=== PATIENT | male | born 1970 | race Caucasian/White ===

== ENCOUNTER 2016-03-27 01:57 | Emergency (ER) | payer BC ==
[2016-03-27 04:03] LABS: BASO % 0.6 % (0.0-1.0); EOS # 0.3 K/mm3 (0.0-0.50); EOS % 3.9 % (0.0-3.0); LARGE UNSTAINED CELL # 0.2 K/mm3 (0.0-0.4); LARGE UNSTAINED CELL % 3.1 % (0.0-4.0); LYMPH # 2.8 K/mm3 (1.5-4.5); LYMPH % 37.2 % (24.0-44.0); MEAN CORPUSCULAR HEMOGLOBIN 29.2 pg (27.0-33.0); MEAN CORPUSCULAR HGB CONC 33.5 g/dl (32.0-36.5); MEAN CORPUSCULAR VOLUME 87.1 fl (80.0-96.0); MONO # 0.5 K/mm3 (0.0-0.8); MONO % 6.8 % (0.0-5.0); NEUTROPHILS # 3.6 K/mm3 (1.8-7.7); NEUTROPHILS % 48.4 % (36.0-66.0); PLATELET COUNT, AUTOMATED 216 k/mm3 (150-450); RED CELL DISTRIBUTION WIDTH 13.2 % (11.5-14.5); WHITE BLOOD COUNT 7.5 K/mm3 (4.0-10.0)
[2016-03-27 04:15] LABS: ANION GAP 8 MEQ/L (8-16); BLOOD UREA NITROGEN 12 MG/DL (7-18); CALCIUM LEVEL 8.5 MG/DL (8.5-10.1); CARBON DIOXIDE LEVEL 30 MEQ/L (21-32); CHLORIDE LEVEL 106 MEQ/L (98-107); GLOMERULAR FILTRATION RATE > 60.0 (>60); GLUCOSE, FASTING 98 MG/DL (70-105); POTASSIUM SERUM 3.4 MEQ/L (3.5-5.1); SODIUM LEVEL 144 MEQ/L (136-145)
--- NOTE | 2016-03-27 05:59 | EDDOCDS ---
Physician Documentation [facility] Name: Dontrell Hidalgo Age: 45 yrs Sex: Male : 1970 Arrival Date: 03/27/2016 Time: 01:57 Bed 1 Private MD: Disposition: 03/27/16 05:51 Discharged to Home/Self Care. Impression: Other anxiety disorders. - Condition is Stable. - Medication Reconciliation, Local Pharmacy Hours form. - [facility]: [facility]; When: Call to arrange an appointment; Reason: To establish care. - Problem is an ongoing problem. - Symptoms have improved. Historical: - Allergies: No known drug Allergies; - Home Meds: 1. aspirin 81 mg Oral tab 1 tab once daily - PMHx: Hypercholesterolemia; - PSHx: none; - Social history: Smoking status: Patient states was never smoker of tobacco. No barriers to communication noted, The patient speaks fluent Austrian, Speaks appropriately for age. - : The pt / caregiver states he / she is not on anticoagulants. Home medication list is obtained from the patient, [email or web address] import data. - Exposure Risk Screening:: None identified. - Family history: Pertinent for CVA or TIA, heart disease, Mother has/had CABG. Father has/had angioplasty. Brother has/had cerebrovascular accident, [place], age 64. Vital Signs: 03/27 02:11 BP 143 / 82; Pulse 83; Resp 18; Temp 98.2(O); Pulse Ox 96% on R/A; Weight 124.74 kg / js15 275 lbs; Height 5 ft. 7 in. (170.18 cm); Pain 2/10; 02:15 BP 139 / 69 (auto/); mv5 02:16 Pulse 80 MON; Pulse Ox 94% ; mv5 02:30 BP 125 / 70 (auto/); mv5 02:30 Pulse 76 MON; Pulse Ox 93% ; mv5 02:45 BP 119 / 62 (auto/); mv5 02:46 Pulse 74 MON; Pulse Ox 93% ; mv5 03:00 BP 121 / 62 (auto/); mv5 03:01 Pulse 74 MON; Pulse Ox 93% ; mv5 03:30 BP 112 / 69 (auto/); mv5 03:31 Pulse 70 MON; Pulse Ox 94% ; mv5 02:11 Body Mass Index 43.07 (124.74 kg, 170.18 cm) js15 MDM: 02:03 ECG WITH READING ER PHYS+CARDIAG ordered. EDMS 03:01 Sales Representative Consultant/Pulse Ox/q 30 min VS ordered. feb 03:01 IV Saline Lock ordered. feb 03:01 Rhythm Strip to chart ordered. feb 03:01 Undress patient appropriately for examination ordered. feb 03:02 Basic Metabolic Profile Ordered. EDMS 03:02 CBC with Diff Ordered. EDMS 03:02 Cardiac Injury Profile Ordered. EDMS 03:02 Troponin Ordered. EDMS 03:15 Aspirin 324 mg PO once ordered. cs11 03:15 Chest, 1 View Ordered. EDMS 03:21 Financial registration complete. pm4 03:30 [facility] Payment Agreement was scanned into [employer] and attached to record. pm4 05:48 Basic Metabolic Profile Reviewed. cs11 05:48 CBC with Diff Reviewed. cs11 05:48 Cardiac Injury Profile Reviewed. cs11 05:48 Troponin Reviewed. cs11 Administered Medications: 03:20 Not Given (Pt had ASA 243mg captain's assistant, MD aware. Advised to hold ordered dose. ): Aspirin 324 mv5 mg PO once Signatures: Dispatcher [employer] EDMS Nelida Ritchie, RN RN Osbaldo Ryder, DO cs11 Mary Obrien,RN RN js15 Ananth Workman, Reg Reg pm4 Elisabeth Begum,RN RN mv5 The chart was reviewed and I authenticate all verbal orders and agree with the evaluation and treatment provided.Attachments: 03:30 [facility] Payment Agreement pm4 MTDD
--- NOTE | 2016-03-27 05:59 | EDDOCDS ---
Nurse's Notes [facility] Name: Dontrell Hidalgo Age: 45 yrs Sex: Male : 1970 Arrival Date: 03/27/2016 Time: 01:57 Bed 1 Private MD: Diagnosis: Other anxiety disorders Presentation: 03/27 02:07 Presenting complaint: Patient states: "Monday at 2 in the morning I started having js15 this fluttery feeling and didn't feel right for about three hours but it went away. Then it started up again around 330 pm yesterday and I have some chest tightness in the center of my chest". Aspirin was taken PEOPLESOFT HR DEVELOPER. (3) 81 mg tabs. Adult Sepsis Screening: The patient does not have new or worsening altered mentation. Patient's respiratory rate is less than 22. Systolic blood pressure is greater than 100. Patient has a qSOFA score of 0- Negative Sepsis Screen. Suicide/Homicide risk assessment- the patient denies having any suicidal and/or homicidal ideations and does not present with any other emotional, behavioral or mental health complaints. Status: Patient is not a student services advisor or dependent. Transition of care: patient was not received from another setting of care. 02:07 Acuity: MARLON Level 3 js15 02:07 Method Of Arrival: Walkin/Carried/Asstd js15 Triage Assessment: 02:11 General: Appears in no apparent distress, Behavior is appropriate for age, cooperative. js15 Pain: Location: xyphoid area and mid-sternal area Pain currently is 2 out of 10 on a pain scale. HIV screening NA for this visit Offered previously. The patient is triaged at the bedside. See Assessment in Nurses Notes section of ED record. Neurological: Level of Consciousness is awake, alert, obeys commands, Oriented to person, place, time. Cardiovascular: Rhythm is sinus rhythm Chest pain is described as mild, radiates Does not radiate. episodes are continuous began 1530 on 03/26/16. Respiratory: Airway is patent Respiratory effort is even, unlabored, Respiratory pattern is regular, symmetrical. Derm: Skin is pink, warm & dry. Historical: - Allergies: No known drug Allergies; - Home Meds: 1. aspirin 81 mg Oral tab 1 tab once daily - PMHx: Hypercholesterolemia; - PSHx: none; - Social history: Smoking status: Patient states was never smoker of tobacco. No barriers to communication noted, The patient speaks fluent Azeri, Speaks appropriately for age. - : The pt / caregiver states he / she is not on anticoagulants. Home medication list is obtained from the patient, [employer] import data. - Exposure Risk Screening:: None identified. - Family history: Pertinent for CVA or TIA, heart disease, Mother has/had CABG. Father has/had angioplasty. Brother has/had cerebrovascular accident, [place], age 64. Screenin:18 Screening information is obtained from the patient. Fall risk: No risks identified. mv5 Assistance ADL's: requires no assistance with activities of daily living. Abuse/DV Screen: The patient / caregiver reports he/she is: not in a situation that causes fear, pain or injury. Nutritional screening: No deficits noted. Advance Directives: There is no active DNR order. home support is adequate. Assessment: 02:18 General: Appears in no apparent distress, well nourished, well groomed, Behavior is mv5 cooperative, pleasant. Pain: Location: anterior aspect of right upper chest, anterior aspect of left upper chest, xyphoid area, mid-sternal area, left nipple, right breast and left breast Pain currently is 2 out of 10 on a pain scale. Quality of pain is described as squeezing, Pain began 2/ \\T\\ 1530, previously on 03/25. Aggravated by Worse in evening or when lying down to rest. Neurological: Level of Consciousness is awake, alert, obeys commands, Oriented to person, place, time. EENT: No deficits noted. Cardiovascular: Capillary refill < 3 seconds Heart tones S1 S2 Pulses are all present. Rhythm is sinus rhythm No ectopy. Chest pain is described as mild, quality is squeezing. Respiratory: Airway is patent Respiratory effort is even, unlabored, Respiratory pattern is regular, symmetrical, Breath sounds are clear bilaterally. GI: No deficits noted. : No deficits noted. Derm: Skin is pink, warm & dry. 02:54 General: Appears in no apparent distress, Pt awaiting ERP eval.. mv5 04:38 General: Appears in no apparent distress. General: Awaiting disposition.. Neurological: mv5 Level of Consciousness is awake, alert, Oriented to person, place, time. Cardiovascular: Capillary refill < 3 seconds Chest pain is denied. Respiratory: Airway is patent Respiratory effort is even, unlabored, Respiratory pattern is regular, symmetrical. Derm: Skin is pink, warm & dry. Vital Signs: 02:11 BP 143 / 82; Pulse 83; Resp 18; Temp 98.2(O); Pulse Ox 96% on R/A; Weight 124.74 kg; js15 Height 5 ft. 7 in. (170.18 cm); Pain 2/10; 02:15 BP 139 / 69 (auto/); mv5 02:16 Pulse 80 MON; Pulse Ox 94% ; mv5 02:30 BP 125 / 70 (auto/); mv5 02:30 Pulse 76 MON; Pulse Ox 93% ; mv5 02:45 BP 119 / 62 (auto/); mv5 02:46 Pulse 74 MON; Pulse Ox 93% ; mv5 03:00 BP 121 / 62 (auto/); mv5 03:01 Pulse 74 MON; Pulse Ox 93% ; mv5 03:30 BP 112 / 69 (auto/); mv5 03:31 Pulse 70 MON; Pulse Ox 94% ; mv5 02:11 Body Mass Index 43.07 (124.74 kg, 170.18 cm) js15 Vitals: 05:58 Log In Time: March 27, 2016 at 02:05. 5 ED Course: 01:58 Patient visited by Danielle Lyons. gjb 01:58 Patient moved to Waiting gjb 02:01 Criss Locke, RN is Primary Nurse. cz 02:01 Patient moved to 1 cz 02:09 Triage Initiated js15 02:12 Patient visited by Jumana Velasco PCA. wade 02:12 Pt greeted and oriented to ED. Patient advised of names of staff involved in care, wade location of call [place], wait times and NPO status. Patient has correct armband on for positive identification. Placed in gown. Bed in low position. Call light in reach. Side rails up X2. senior research consultant on. Pulse ox on. NIBP on. 02:12 EKG done. (by ED staff). Reviewed by Osbaldo Espinoza DO. wade 02:18 Primary Nurse role handed off by Criss Locke, RN mv5 02:18 Elisabeth Begum,RN is Primary Nurse. mv5 02:18 The patient / caregiver is instructed regarding the plan of care and ED course. mv5 02:18 Inserted saline lock: 20 gauge in right antecubital area and blood collected. The mv5 patient tolerated the procedure well. 02:54 Patient visited by Elisabeth Begum RN. mv5 03:07 Osbaldo Espinoza DO is Attending Physician. cs11 03:07 Patient visited by Osbaldo Espinoza DO. cs11 03:07 Basic Metabolic Profile Sent. mv5 03:07 CBC with Diff Sent. mv5 03:07 Cardiac Injury Profile Sent. mv5 03:07 Troponin Sent. mv5 03:30 [facility] Payment Agreement was scanned into [employer] and attached to record. pm4 03:40 Patient visited by Elisabeth Begum RN. mv5 04:37 Patient visited by Elisabeth Begum RN. mv5 05:38 Patient visited by Elisabeth Begum RN. mv5 05:50 [facility] is Referral Physician. cs11 05:56 Discontinued intact, bleeding controlled, pressure dressing applied, No mv5 redness/swelling at site. No procedures done that require assistance. Administered Medications: 03:20 Not Given (Pt had ASA 243mg MD frances aware. Advised to hold ordered dose. ): Aspirin 324 mv5 mg PO once Order Results: Lab Order: Basic Metabolic Profile; SPEC'M 03/27/16 02:11 Test: GLUCOSE, FASTING; Value: 98; Range: 70-105; Units: MG/DL; Status: F Test: BLOOD UREA NITROGEN; Value: 12; Range: 7-18; Units: MG/DL; Status: F Test: CREATININE FOR GFR; Value: 1.00; Range: 0.70-1.30; Units: MG/DL; Status: F Test: GLOMERULAR FILTRATION RATE; Value: > 60.0; Range: >60; Status: F Test: SODIUM LEVEL; Value: 144; Range: 136-145; Units: MEQ/L; Status: F Test: POTASSIUM SERUM; Value: 3.4; Range: 3.5-5.1; Abnormal: Below low normal; Units: MEQ/L; Status: F Test: CHLORIDE LEVEL; Value: 106; Range: 98-107; Units: MEQ/L; Status: F Test: CARBON DIOXIDE LEVEL; Value: 30; Range: 21-32; Units: MEQ/L; Status: F Test: ANION GAP; Value: 8; Range: 8-16; Units: MEQ/L; Status: F Test: CALCIUM LEVEL; Value: 8.5; Range: 8.5-10.1; Units: MG/DL; Status: F Test Note: ; Units are mL/min/1.73 m2 Chronic Kidney Disease Staging per NKF: Stage I & II GFR >=60 Normal to Mildly Decreased Stage III GFR 30-59 Moderately Decreased Stage IV GFR 15-29 Severely Decreased Stage V GFR <15 Very Little GFR Left ESRD GFR <15 on BUCKLE ASSEMBLER Lab Order: CBC with Diff; SPEC'M 03/27/16 02:11 Test: WHITE BLOOD COUNT; Value: 7.5; Range: 4.0-10.0; Units: K/mm3; Status: F Test: RED BLOOD COUNT; Value: 4.91; Range: 4.30-6.10; Units: M/mm3; Status: F Test: HEMOGLOBIN; Value: 14.3; Range: 14.0-18.0; Units: g/dl; Status: F Test: HEMATOCRIT; Value: 42.8; Range: 42.0-52.0; Units: %; Status: F Test: MEAN CORPUSCULAR VOLUME; Value: 87.1; Range: 80.0-96.0; Units: fl; Status: F Test: MEAN CORPUSCULAR HEMOGLOBIN; Value: 29.2; Range: 27.0-33.0; Units: pg; Status: F Test: MEAN CORPUSCULAR HGB CONC; Value: 33.5; Range: 32.0-36.5; Units: g/dl; Status: F Test: RED CELL DISTRIBUTION WIDTH; Value: 13.2; Range: 11.5-14.5; Units: %; Status: F Test: PLATELET COUNT, AUTOMATED; Value: 216; Range: 150-450; Units: k/mm3; Status: F Test: NEUTROPHILS %; Value: 48.4; Range: 36.0-66.0; Units: %; Status: F Test: LYMPH %; Value: 37.2; Range: 24.0-44.0; Units: %; Status: F Test: MONO %; Value: 6.8; Range: 0.0-5.0; Abnormal: Above high normal; Units: %; Status: F Test: EOS %; Value: 3.9; Range: 0.0-3.0; Abnormal: Above high normal; Units: %; Status: F Test: BASO %; Value: 0.6; Range: 0.0-1.0; Units: %; Status: F Test: LARGE UNSTAINED CELL %; Value: 3.1; Range: 0.0-4.0; Units: %; Status: F Test: NEUTROPHILS #; Value: 3.6; Range: 1.8-7.7; Units: K/mm3; Status: F Test: LYMPH #; Value: 2.8; Range: 1.5-4.5; Units: K/mm3; Status: F Test: MONO #; Value: 0.5; Range: 0.0-0.8; Units: K/mm3; Status: F Test: EOS #; Value: 0.3; Range: 0.0-0.50; Units: K/mm3; Status: F Test: BASO #; Value: 0.0; Range: 0.0-0.2; Units: K/mm3; Status: F Test: LARGE UNSTAINED CELL #; Value: 0.2; Range: 0.0-0.4; Units: K/mm3; Status: F Lab Order: Cardiac Injury Profile; SPEC'M 03/27/16 02:11 Test: CPK CREATINE PHOSPHOKINASE; Value: 168; Range: 39-308; Units: U/L; Status: F Test: CK-MB VALUE MASS; Value: 1.3; Range: 0.0-3.6; Units: NG/ML; Status: F Test: MB/CK RELATIVE INDEX; Value: 0.77; Range: < OR =4; Status: F Test Note: ; DIAGNOSIS CRITERIA MMB ng/ml Relative Index (RI) NON-AMI < or = 5 N/A DAVISON ZONE > 5 < or = 4 AMI > 5 > 4 Lab Order: Troponin; SPEC'M 03/27/16 02:11 Test: TROPONIN I; Value: < 0.02; Range: < 0.10; Units: NG/ML; Status: F Test Note: ; Troponin I Reference Interval for [employer] LOCI: 99th Percentile= 0.00-0.045 ng/ml Risk Stratification: <= 0.10 ng/ml Decreased Risk for Adverse Clinical Events. 0.10-1.50 ng/ml Increased Risk for Adverse Clinical Events. Evaluation of additional criterion and/or repeat testing in 2-6 hours is suggested to rule out myocardial damage. >= 1.50 ng/ml Indicative of Myocardial Injury. Outcome: 05:51 Discharge ordered by Provider. cs11 05:56 Discharge Assessment: Patient awake, alert and oriented x 3. No cognitive and/or mv5 functional deficits noted. Patient verbalized understanding of disposition instructions. patient administered narcotics - no. The following High Risk Discharge criteria are identified: None. Discharged to home ambulatory. Condition: stable. Discharge instructions given to patient, Demonstrated understanding of Pt was receptive of discharge instructions/ teaching. No special radiology studies were completed. Property sent home with patient. 05:58 Patient left the ED. mv5 Signatures: Tiburcio Britton, RN RN cz Jumana Velasco, CURRICULUM DEVELOPMENT MANAGER CURRICULUM DEVELOPMENT MANAGER Osbaldo Rosas, DO cs11 Mary Obrien,RN RN js15 Danielle Lyons Paul, Reg Reg pm4 Elisabeth Begum,RN RN mv5 KENDRICKD
--- NOTE | 2016-03-27 06:44 | ECGEPIP ---
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 RBBB NSTTW ABNORMALITY SIMILAR TO 03/09/15 Electronically Signed On 03-27-2016 6:44:32 EST by Jayme Valdivia
--- NOTE | 2016-03-27 08:15 | REP ---
PORTABLE CHEST X-RAY: Sitting AP view. HISTORY: Chest pain. Comparison study March 09, 2015. FINDINGS: EKG monitoring electrodes overlie the chest. The lungs are symmetrically aerated and free of infiltrate. Pleural angles are sharp. Pulmonary vasculature is not increased. Heart size is normal. IMPRESSION: No acute disease. Signed by Cortes Galloway MD 03/27/2016 08:24 A
--- NOTE | 2016-03-29 06:59 | EDDOCDS ---
Physician Documentation [facility] Name: Dontrell Hidalgo Age: 45 yrs Sex: Male : 1970 Arrival Date: 03/27/2016 Time: 01:57 Bed 1 Private MD: Disposition: 03/27/16 05:51 Discharged to Home/Self Care. Impression: Other anxiety disorders. - Condition is Stable. - Medication Reconciliation, Local Pharmacy Hours form. - Follow up: [facility]; When: Call to arrange an appointment; Reason: To establish care. - Problem is an ongoing problem. - Symptoms have improved. Historical: - Allergies: No known drug Allergies; - Home Meds: 1. aspirin 81 mg Oral tab 1 tab once daily - PMHx: Hypercholesterolemia; - PSHx: none; - Social history: Smoking status: Patient states was never smoker of tobacco. No barriers to communication noted, The patient speaks fluent Nepalese, Speaks appropriately for age. - : The pt / caregiver states he / she is not on anticoagulants. Home medication list is obtained from the patient, [employer] import data. - Exposure Risk Screening:: None identified. - Family history: Pertinent for CVA or TIA, heart disease, Mother has/had CABG. Father has/had angioplasty. Brother has/had cerebrovascular accident, [place], age 64. Vital Signs: 03/27 02:11 BP 143 / 82; Pulse 83; Resp 18; Temp 98.2(O); Pulse Ox 96% on R/A; Weight 124.74 kg / js15 275 lbs; Height 5 ft. 7 in. (170.18 cm); Pain 2/10; 02:15 BP 139 / 69 (auto/); mv5 02:16 Pulse 80 MON; Pulse Ox 94% ; mv5 02:30 BP 125 / 70 (auto/); mv5 02:30 Pulse 76 MON; Pulse Ox 93% ; mv5 02:45 BP 119 / 62 (auto/); mv5 02:46 Pulse 74 MON; Pulse Ox 93% ; mv5 03:00 BP 121 / 62 (auto/); mv5 03:01 Pulse 74 MON; Pulse Ox 93% ; mv5 03:30 BP 112 / 69 (auto/); mv5 03:31 Pulse 70 MON; Pulse Ox 94% ; mv5 02:11 Body Mass Index 43.07 (124.74 kg, 170.18 cm) js15 MDM: 02:03 ECG WITH READING ER PHYS+CARDIAG ordered. EDMS 03:01 Buffing Turner And Counter/Pulse Ox/q 30 min VS ordered. feb 03:01 IV Saline Lock ordered. feb 03:01 Rhythm Strip to chart ordered. feb 03:01 Undress patient appropriately for examination ordered. sabina 03:02 Basic Metabolic Profile Ordered. EDMS 03:02 CBC with Diff Ordered. EDMS 03:02 Cardiac Injury Profile Ordered. EDMS 03:02 Troponin Ordered. EDMS 03:15 Aspirin 324 mg PO once ordered. cs11 03:15 Chest, 1 View Ordered. EDMS 03:21 Financial registration complete. pm4 03:30 [facility] Payment Agreement was scanned into [employer] and attached to record. pm4 05:48 Basic Metabolic Profile Reviewed. cs11 05:48 CBC with Diff Reviewed. cs11 05:48 Cardiac Injury Profile Reviewed. cs11 05:48 Troponin Reviewed. cs11 14:26 T-Sheet-- Draft Copy was scanned into [employer] and attached to record. gb 14:26 ECG/EKG was scanned into [employer] and attached to record. gb Administered Medications: 03:20 Not Given (Pt had ASA 243mg banking pin adjuster, MD aware. Advised to hold ordered dose. ): Aspirin 324 mv5 mg PO once Signatures: Dispatcher [employer] Nelida Espino, RN Deana Lewis, Reg Reg gb Osbaldo Espinoza, DO DO cs11 Mary ObrienRN GIGI js15 Ananth Workman, Reg Reg pm4 Elisabeth BegumRN RN mv5 The chart was reviewed and I authenticate all verbal orders and agree with the evaluation and treatment provided.Attachments: 03:30 [facility] Payment Agreement pm4 14:26 T-Sheet-- Draft Copy gb 14:26 ECG/EKG gb Chart Complete MTDD
--- NOTE | 2016-03-29 06:59 | EDDOCDS ---
Physician Documentation [facility] Name: Dontrell Hidalgo Age: 45 yrs Sex: Male : 1970 Arrival Date: 03/27/2016 Time: 01:57 Bed 1 Private MD: Disposition: 03/27/16 05:51 Discharged to Home/Self Care. Impression: Other anxiety disorders. - Condition is Stable. - Medication Reconciliation, Local Pharmacy Hours form. - Follow up: [facility]; When: Call to arrange an appointment; Reason: To establish care. - Problem is an ongoing problem. - Symptoms have improved. Historical: - Allergies: No known drug Allergies; - Home Meds: 1. aspirin 81 mg Oral tab 1 tab once daily - PMHx: Hypercholesterolemia; - PSHx: none; - Social history: Smoking status: Patient states was never smoker of tobacco. No barriers to communication noted, The patient speaks fluent Icelandic, Speaks appropriately for age. - : The pt / caregiver states he / she is not on anticoagulants. Home medication list is obtained from the patient, [employer] import data. - Exposure Risk Screening:: None identified. - Family history: Pertinent for CVA or TIA, heart disease, Mother has/had CABG. Father has/had angioplasty. Brother has/had cerebrovascular accident, [place], age 64. Vital Signs: 03/27 02:11 BP 143 / 82; Pulse 83; Resp 18; Temp 98.2(O); Pulse Ox 96% on R/A; Weight 124.74 kg / js15 275 lbs; Height 5 ft. 7 in. (170.18 cm); Pain 2/10; 02:15 BP 139 / 69 (auto/); mv5 02:16 Pulse 80 MON; Pulse Ox 94% ; mv5 02:30 BP 125 / 70 (auto/); mv5 02:30 Pulse 76 MON; Pulse Ox 93% ; mv5 02:45 BP 119 / 62 (auto/); mv5 02:46 Pulse 74 MON; Pulse Ox 93% ; mv5 03:00 BP 121 / 62 (auto/); mv5 03:01 Pulse 74 MON; Pulse Ox 93% ; mv5 03:30 BP 112 / 69 (auto/); mv5 03:31 Pulse 70 MON; Pulse Ox 94% ; mv5 02:11 Body Mass Index 43.07 (124.74 kg, 170.18 cm) js15 MDM: 02:03 ECG WITH READING ER PHYS+CARDIAG ordered. EDMS 03:01 Spearer/Pulse Ox/q 30 min VS ordered. feb 03:01 IV Saline Lock ordered. feb 03:01 Rhythm Strip to chart ordered. feb 03:01 Undress patient appropriately for examination ordered. sabina 03:02 Basic Metabolic Profile Ordered. EDMS 03:02 CBC with Diff Ordered. EDMS 03:02 Cardiac Injury Profile Ordered. EDMS 03:02 Troponin Ordered. EDMS 03:15 Aspirin 324 mg PO once ordered. cs11 03:15 Chest, 1 View Ordered. EDMS 03:21 Financial registration complete. pm4 03:30 [facility] Payment Agreement was scanned into [employer] and attached to record. pm4 05:48 Basic Metabolic Profile Reviewed. cs11 05:48 CBC with Diff Reviewed. cs11 05:48 Cardiac Injury Profile Reviewed. cs11 05:48 Troponin Reviewed. cs11 14:26 T-Sheet-- Draft Copy was scanned into [employer] and attached to record. gb 14:26 ECG/EKG was scanned into [employer] and attached to record. gb Administered Medications: 03:20 Not Given (Pt had ASA 243mg precinct police captain, MD aware. Advised to hold ordered dose. ): Aspirin 324 mv5 mg PO once Signatures: Dispatcher [employer] Nelida Espino, RN Deana Lewis, Reg Reg gb Osbaldo Espinoza, DO DO cs11 Mary ObrienRN GIGI js15 Ananth Workman, Reg Reg pm4 Elisabeth BegumRN RN mv5 The chart was reviewed and I authenticate all verbal orders and agree with the evaluation and treatment provided.Attachments: 03:30 [facility] Payment Agreement pm4 14:26 T-Sheet-- Draft Copy gb 14:26 ECG/EKG gb Chart Complete MTDD
--- NOTE | 2016-03-29 06:59 | EDDOCDS ---
Nurse's Notes [facility] Name: Samm Hidalgo Age: 45 yrs Sex: Male : 1970 Arrival Date: 03/27/2016 Time: 01:57 Bed 1 Private MD: Diagnosis: Other anxiety disorders Presentation: 03/27 02:07 Presenting complaint: Patient states: "Monday at 2 in the morning I started having js15 this fluttery feeling and didn't feel right for about three hours but it went away. Then it started up again around 330 pm yesterday and I have some chest tightness in the center of my chest". Aspirin was taken INSTRUCTOR PHYSICAL EDUCATION. (3) 81 mg tabs. Adult Sepsis Screening: The patient does not have new or worsening altered mentation. Patient's respiratory rate is less than 22. Systolic blood pressure is greater than 100. Patient has a qSOFA score of 0- Negative Sepsis Screen. Suicide/Homicide risk assessment- the patient denies having any suicidal and/or homicidal ideations and does not present with any other emotional, behavioral or mental health complaints. 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 Transition of care: patient was not received from another setting of care. 02:07 Acuity: MARLON Level 3 js15 02:07 Method Of Arrival: Walkin/Carried/Asstd js15 Triage Assessment: 02:11 General: Appears in no apparent distress, Behavior is appropriate for age, cooperative. js15 Pain: Location: xyphoid area and mid-sternal area Pain currently is 2 out of 10 on a pain scale. HIV screening NA for this visit Offered previously. The patient is triaged at the bedside. See Assessment in Nurses Notes section of ED record. Neurological: Level of Consciousness is awake, alert, obeys commands, Oriented to person, place, time. Cardiovascular: Rhythm is sinus rhythm Chest pain is described as mild, radiates Does not radiate. episodes are continuous began 1530 on 03/26/16. Respiratory: Airway is patent Respiratory effort is even, unlabored, Respiratory pattern is regular, symmetrical. Derm: Skin is pink, warm & dry. Historical: - Allergies: No known drug Allergies; - Home Meds: 1. aspirin 81 mg Oral tab 1 tab once daily - PMHx: Hypercholesterolemia; - PSHx: none; - Social history: Smoking status: Patient states was never smoker of tobacco. No barriers to communication noted, The patient speaks fluent Amharic, Speaks appropriately for age. - : The pt / caregiver states he / she is not on anticoagulants. Home medication list is obtained from the patient, Sendio import data. - Exposure Risk Screening:: None identified. - Family history: Pertinent for CVA or TIA, heart disease, Mother has/had CABG. Father has/had angioplasty. Brother has/had cerebrovascular accident, [place], age 64. Screenin:18 Screening information is obtained from the patient. Fall risk: No risks identified. mv5 Assistance ADL's: requires no assistance with activities of daily living. Abuse/DV Screen: The patient / caregiver reports he/she is: not in a situation that causes fear, pain or injury. Nutritional screening: No deficits noted. Advance Directives: There is no active DNR order. home support is adequate. Assessment: 02:18 General: Appears in no apparent distress, well nourished, well groomed, Behavior is mv5 cooperative, pleasant. Pain: Location: anterior aspect of right upper chest, anterior aspect of left upper chest, xyphoid area, mid-sternal area, left nipple, right breast and left breast Pain currently is 2 out of 10 on a pain scale. Quality of pain is described as squeezing, Pain began 2/ \\T\\ 1530, previously on 03/25. Aggravated by Worse in evening or when lying down to rest. Neurological: Level of Consciousness is awake, alert, obeys commands, Oriented to person, place, time. EENT: No deficits noted. Cardiovascular: Capillary refill < 3 seconds Heart tones S1 S2 Pulses are all present. Rhythm is sinus rhythm No ectopy. Chest pain is described as mild, quality is squeezing. Respiratory: Airway is patent Respiratory effort is even, unlabored, Respiratory pattern is regular, symmetrical, Breath sounds are clear bilaterally. GI: No deficits noted. : No deficits noted. Derm: Skin is pink, warm & dry. 02:54 General: Appears in no apparent distress, Pt awaiting ERP eval.. mv5 04:38 General: Appears in no apparent distress. General: Awaiting disposition.. Neurological: mv5 Level of Consciousness is awake, alert, Oriented to person, place, time. Cardiovascular: Capillary refill < 3 seconds Chest pain is denied. Respiratory: Airway is patent Respiratory effort is even, unlabored, Respiratory pattern is regular, symmetrical. Derm: Skin is pink, warm & dry. Vital Signs: 02:11 BP 143 / 82; Pulse 83; Resp 18; Temp 98.2(O); Pulse Ox 96% on R/A; Weight 124.74 kg; js15 Height 5 ft. 7 in. (170.18 cm); Pain 2/10; 02:15 BP 139 / 69 (auto/); mv5 02:16 Pulse 80 MON; Pulse Ox 94% ; mv5 02:30 BP 125 / 70 (auto/); mv5 02:30 Pulse 76 MON; Pulse Ox 93% ; mv5 02:45 BP 119 / 62 (auto/); mv5 02:46 Pulse 74 MON; Pulse Ox 93% ; mv5 03:00 BP 121 / 62 (auto/); mv5 03:01 Pulse 74 MON; Pulse Ox 93% ; mv5 03:30 BP 112 / 69 (auto/); mv5 03:31 Pulse 70 MON; Pulse Ox 94% ; mv5 02:11 Body Mass Index 43.07 (124.74 kg, 170.18 cm) js15 Vitals: 05:58 Log In Time: March 27, 2016 at 02:05. 5 ED Course: 01:58 Patient visited by Danielle Lyons. gjb 01:58 Patient moved to Waiting gjb 02:01 Criss Locke, RN is Primary Nurse. cz 02:01 Patient moved to 1 cz 02:09 Triage Initiated js15 02:12 Patient visited by Jumana Velasco PCA. wade 02:12 Pt greeted and oriented to ED. Patient advised of names of staff involved in care, wade location of call [place], wait times and NPO status. Patient has correct armband on for positive identification. Placed in gown. Bed in low position. Call light in reach. Side rails up X2. manager monitoring on. Pulse ox on. NIBP on. 02:12 EKG done. (by ED staff). Reviewed by Osbaldo Gabriel DO. wade 02:18 Primary Nurse role handed off by Criss Locke, RN mv5 02:18 Elisabeth Begum,RN is Primary Nurse. mv5 02:18 The patient / caregiver is instructed regarding the plan of care and ED course. mv5 02:18 Inserted saline lock: 20 gauge in right antecubital area and blood collected. The mv5 patient tolerated the procedure well. 02:54 Patient visited by Elisabeth Begum RN. mv5 03:07 Osbaldo Gabriel DO is Attending Physician. cs11 03:07 Patient visited by Osbaldo Gabriel DO. cs11 03:07 Basic Metabolic Profile Sent. mv5 03:07 CBC with Diff Sent. mv5 03:07 Cardiac Injury Profile Sent. mv5 03:07 Troponin Sent. mv5 03:30 [facility] Payment Agreement was scanned into Portapure and attached to record. pm4 03:40 Patient visited by Elisabeth Begum RN. mv5 04:37 Patient visited by Elisabeth Begum RN. mv5 05:38 Patient visited by Elisabeth Begum RN. mv5 05:50 [facility] is Referral Physician. cs11 05:56 Discontinued intact, bleeding controlled, pressure dressing applied, No mv5 redness/swelling at site. No procedures done that require assistance. 06:54 EKG-ADULT Returned. EDMS 08:17 Chest, 1 View Returned. EDMS 14:26 T-Sheet-- Draft Copy was scanned into Portapure and attached to record. gb 14:26 ECG/EKG was scanned into Portapure and attached to record. gb Administered Medications: 03:20 Not Given (Pt had ASA 243mg MD frances aware. Advised to hold ordered dose. ): Aspirin 324 mv5 mg PO once Order Results: Lab Order: Basic Metabolic Profile; [facility]' 03/27/16 02:11 Test: GLUCOSE, FASTING; Value: 98; Range: 70-105; Units: MG/DL; Status: F Test: BLOOD UREA NITROGEN; Value: 12; Range: 7-18; Units: MG/DL; Status: F Test: CREATININE FOR GFR; Value: 1.00; Range: 0.70-1.30; Units: MG/DL; Status: F Test: GLOMERULAR FILTRATION RATE; Value: > 60.0; Range: >60; Status: F Test: SODIUM LEVEL; Value: 144; Range: 136-145; Units: MEQ/L; Status: F Test: POTASSIUM SERUM; Value: 3.4; Range: 3.5-5.1; Abnormal: Below low normal; Units: MEQ/L; Status: F Test: CHLORIDE LEVEL; Value: 106; Range: 98-107; Units: MEQ/L; Status: F Test: CARBON DIOXIDE LEVEL; Value: 30; Range: 21-32; Units: MEQ/L; Status: F Test: ANION GAP; Value: 8; Range: 8-16; Units: MEQ/L; Status: F Test: CALCIUM LEVEL; Value: 8.5; Range: 8.5-10.1; Units: MG/DL; Status: F Test Note: ; Units are mL/min/1.73 m2 Chronic Kidney Disease Staging per NKF: Stage I & II GFR >=60 Normal to Mildly Decreased Stage III GFR 30-59 Moderately Decreased Stage IV GFR 15-29 Severely Decreased Stage V GFR <15 Very Little GFR Left ESRD GFR <15 on SUBSTATION ELECTRICIAN Lab Order: CBC with Diff; SPEC'M 03/27/16 02:11 Test: WHITE BLOOD COUNT; Value: 7.5; Range: 4.0-10.0; Units: K/mm3; Status: F Test: RED BLOOD COUNT; Value: 4.91; Range: 4.30-6.10; Units: M/mm3; Status: F Test: HEMOGLOBIN; Value: 14.3; Range: 14.0-18.0; Units: g/dl; Status: F Test: HEMATOCRIT; Value: 42.8; Range: 42.0-52.0; Units: %; Status: F Test: MEAN CORPUSCULAR VOLUME; Value: 87.1; Range: 80.0-96.0; Units: fl; Status: F Test: MEAN CORPUSCULAR HEMOGLOBIN; Value: 29.2; Range: 27.0-33.0; Units: pg; Status: F Test: MEAN CORPUSCULAR HGB CONC; Value: 33.5; Range: 32.0-36.5; Units: g/dl; Status: F Test: RED CELL DISTRIBUTION WIDTH; Value: 13.2; Range: 11.5-14.5; Units: %; Status: F Test: PLATELET COUNT, AUTOMATED; Value: 216; Range: 150-450; Units: k/mm3; Status: F Test: NEUTROPHILS %; Value: 48.4; Range: 36.0-66.0; Units: %; Status: F Test: LYMPH %; Value: 37.2; Range: 24.0-44.0; Units: %; Status: F Test: MONO %; Value: 6.8; Range: 0.0-5.0; Abnormal: Above high normal; Units: %; Status: F Test: EOS %; Value: 3.9; Range: 0.0-3.0; Abnormal: Above high normal; Units: %; Status: F Test: BASO %; Value: 0.6; Range: 0.0-1.0; Units: %; Status: F Test: LARGE UNSTAINED CELL %; Value: 3.1; Range: 0.0-4.0; Units: %; Status: F Test: NEUTROPHILS #; Value: 3.6; Range: 1.8-7.7; Units: K/mm3; Status: F Test: LYMPH #; Value: 2.8; Range: 1.5-4.5; Units: K/mm3; Status: F Test: MONO #; Value: 0.5; Range: 0.0-0.8; Units: K/mm3; Status: F Test: EOS #; Value: 0.3; Range: 0.0-0.50; Units: K/mm3; Status: F Test: BASO #; Value: 0.0; Range: 0.0-0.2; Units: K/mm3; Status: F Test: LARGE UNSTAINED CELL #; Value: 0.2; Range: 0.0-0.4; Units: K/mm3; Status: F Lab Order: Cardiac Injury Profile; SPEC'M 03/27/16 02:11 Test: CPK CREATINE PHOSPHOKINASE; Value: 168; Range: 39-308; Units: U/L; Status: F Test: CK-MB VALUE MASS; Value: 1.3; Range: 0.0-3.6; Units: NG/ML; Status: F Test: MB/CK RELATIVE INDEX; Value: 0.77; Range: < OR =4; Status: F Test Note: ; DIAGNOSIS CRITERIA MMB ng/ml Relative Index (RI) NON-AMI < or = 5 N/A DAVISON ZONE > 5 < or = 4 AMI > 5 > 4 Lab Order: Troponin; SPEC'M 03/27/16 02:11 Test: TROPONIN I; Value: < 0.02; Range: < 0.10; Units: NG/ML; Status: F Test Note: ; Troponin I Reference Interval for Siemens Roann LOCI: 99th Percentile= 0.00-0.045 ng/ml Risk Stratification: <= 0.10 ng/ml Decreased Risk for Adverse Clinical Events. 0.10-1.50 ng/ml Increased Risk for Adverse Clinical Events. Evaluation of additional criterion and/or repeat testing in 2-6 hours is suggested to rule out myocardial damage. >= 1.50 ng/ml Indicative of Myocardial Injury. 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 RBBB; NSTTW ABNORMALITY; SIMILAR TO 03/09/15; ; Electronically Signed On 03-27-2016 6:44:32 EST by Jayme Valdivia; Radiology Order: Chest, 1 View Test: Chest, 1 View REASON FOR EXAMINATION: Chest Pain; PORTABLE CHEST X-RAY: Sitting AP view.; ; HISTORY: Chest pain.; ; Comparison study March 09, 2015.; ; FINDINGS: EKG monitoring electrodes overlie the chest. The lungs are; symmetrically aerated and free of infiltrate. Pleural angles are sharp.; Pulmonary vasculature is not increased. Heart size is normal.; ; IMPRESSION:; ; No acute disease.; ; ; Signed by; Cortes aGlloway MD 03/27/2016 08:24 A; Outcome: 05:51 Discharge ordered by Provider. cs11 05:56 Discharge Assessment: Patient awake, alert and oriented x 3. No cognitive and/or mv5 functional deficits noted. Patient verbalized understanding of disposition instructions. patient administered narcotics - no. The following High Risk Discharge criteria are identified: None. Discharged to home ambulatory. Condition: stable. Discharge instructions given to patient, Demonstrated understanding of Pt was receptive of discharge instructions/ teaching. No special radiology studies were completed. Property sent home with patient. 05:58 Patient left the ED. mv5 Signatures: Dispatcher [employer] EDTiburcio Gardner, RN RN cz Deana Krueger, Reg Reg gb Jumana Velasco, LABOR AND EMPLOYMENT [employer]OR [employer] EMPL[employer]MENT [employer] Osbaldo Rosas, DO DO cs11 Mary Obrien,RN RN js15 Danielle Lyons Paul, Reg Reg pm4 Elisabeth BegumRN RN mv5 Chart Complete MTDD
== END 2016-03-27 05:58 | disposition home or self-care (01) ==
LOC: M ED 01:57
DX: F41.1 Generalized anxiety disorder (principal); E78.5 Hyperlipidemia, unspecified; Z79.82 Long term (current) use of aspirin

== ENCOUNTER → 2016-08-29 | Outpatient (REF) | payer BC ==
[2016-08-29 18:04] LABS: BASO % 0.4 % (0.0-1.0); EOS # 0.2 K/mm3 (0.0-0.50); EOS % 2.9 % (0.0-3.0); LARGE UNSTAINED CELL # 0.1 K/mm3 (0.0-0.4); LARGE UNSTAINED CELL % 1.6 % (0.0-4.0); LYMPH # 1.9 K/mm3 (1.5-4.5); LYMPH % 26.7 % (24.0-44.0); MEAN CORPUSCULAR HEMOGLOBIN 30.9 pg (27.0-33.0); MEAN CORPUSCULAR HGB CONC 33.7 g/dl (32.0-36.5); MEAN CORPUSCULAR VOLUME 91.7 fl (80.0-96.0); MONO # 0.4 K/mm3 (0.0-0.8); MONO % 5.3 % (0.0-5.0); NEUTROPHILS # 4.2 K/mm3 (1.8-7.7); NEUTROPHILS % 63.1 % (36.0-66.0); PLATELET COUNT, AUTOMATED 231 k/mm3 (150-450); RED CELL DISTRIBUTION WIDTH 13.2 % (11.5-14.5); WHITE BLOOD COUNT 6.6 K/mm3 (4.0-10.0)
[2016-08-29 18:26] LABS: ALBUMIN 3.4 GM/DL (3.2-5.2); ALKALINE PHOSPHATASE 94 U/L (45-117); ALT/SGPT 28 U/L (12-78); ANION GAP 7 MEQ/L (8-16); AST/SGOT 19 U/L (15-37); BILIRUBIN,TOTAL 0.6 MG/DL (0.2-1.0); BLOOD UREA NITROGEN 19 MG/DL (7-18); CALCIUM LEVEL 8.4 MG/DL (8.5-10.1); CARBON DIOXIDE LEVEL 23 MEQ/L (21-32); CHLORIDE LEVEL 111 MEQ/L (98-107); CHOLESTEROL LEVEL 161 MG/DL (<200); CREATININE FOR GFR 0.82 MG/DL (0.70-1.30); FREE T4 0.77 NG/DL (0.76-1.46); GLOMERULAR FILTRATION RATE > 60.0 (>60); GLUCOSE, FASTING 119 MG/DL (70-105); POTASSIUM SERUM 4.2 MEQ/L (3.5-5.1); SODIUM LEVEL 141 MEQ/L (136-145); TOTAL PROTEIN 6.5 GM/DL (6.4-8.2); TRIGLYCERIDES LEVEL 199 MG/DL (<150)
== END ==
LOC: M SFHCCAPE 10:40
PROVIDERS: ATTEND Physician Assistant
DX: E78.1 Pure hyperglyceridemia (principal)

== ENCOUNTER → 2017-02-21 | Outpatient (REF) | payer BC ==
[2017-02-21 17:14] LABS: ALBUMIN 3.5 GM/DL (3.2-5.2); ALBUMIN/GLOBULIN RATIO 1.13 (1.00-1.93); ALKALINE PHOSPHATASE 85 U/L (45-117); ALT/SGPT 26 U/L (12-78); ANION GAP 8 MEQ/L (8-16); AST/SGOT 18 U/L (7-37); BILIRUBIN,TOTAL 0.5 MG/DL (0.2-1.0); BLOOD UREA NITROGEN 15 MG/DL (7-18); CALCIUM LEVEL 8.8 MG/DL (8.5-10.1); CARBON DIOXIDE LEVEL 27 MEQ/L (21-32); CHLORIDE LEVEL 109 MEQ/L (98-107); CHOLESTEROL LEVEL 155 MG/DL (<200); CHOLESTEROL RISK RATIO 3.369 (<5); CREATININE FOR GFR 0.81 MG/DL (0.70-1.30); GLOMERULAR FILTRATION RATE > 60.0 (>60); GLUCOSE, FASTING 132 MG/DL (70-105); HDL CHOLESTEROL 46 MG/DL (>40); LDL CHOLESTEROL 88.8 MG/DL (<100); NON-HDL-C 109 MG/DL; POTASSIUM SERUM 3.9 MEQ/L (3.5-5.1); SODIUM LEVEL 144 MEQ/L (136-145); TOTAL PROTEIN 6.6 GM/DL (6.4-8.2); TRIGLYCERIDES LEVEL 101 MG/DL (<150)
[2017-02-21 17:15] LABS: ESTIMATED AVERAGE GLUCOSE 123 MG/DL (60-110); HEMOGLOBIN A1c 5.9 %
== END ==
LOC: M SFHCCAPE 10:51
DX: R73.01 Impaired fasting glucose (principal)
CPT/HCPCS: 80053

== ENCOUNTER 2018-10-29 16:59 | Inpatient (IN) | payer BC, OTHER ==
[~2018-10-29] VITALS: Ht 170.2 cm; Wt 133.3 kg
[2018-10-29] MEDS ORDERED: FISH1000 PO (17:04)
[2018-10-29] MEDS ORDERED: ASPI81CH33 PO (17:04)
[2018-10-29] MEDS ORDERED: VITA500C24 PO (17:04)
--- NOTE | 2018-10-29 18:24 | REPVR ---
EXAM: US Duplex Left Lower Extremity Veins, Limited EXAM DATE/TIME: 10/29/2018 6:02 PM CLINICAL HISTORY: 47 years old, male; Pain; Leg, lower; Left; Additional info: Swelling red leg TECHNIQUE: Imaging protocol: Real-time Duplex ultrasound of the Left Lower Extremity with 2-D solo scale, color Doppler flow and spectral waveform analysis with image documentation. Limited exam focused on the left lower extremity veins. COMPARISON: No relevant prior studies available. FINDINGS: Left deep veins: Unremarkable. The common femoral, femoral, proximal profunda femoral and popliteal veins are patent without thrombus. Normal Doppler waveforms. Normal compressibility and/or augmentation response. Soft tissues: A left popliteal fossa fluid collection most likely representing a Leroy's cyst measuring 3.7 x 4.9 x 1.9 cm. IMPRESSION: 1. No evidence of deep venous thrombus in the left lower extremity. 2. Left popliteal fossa Leroy's cyst measures up to 4.9 cm. Electronically signed by: Jody Mandujano On 10/29/2018 18:23:48 PM
[2018-10-29] MEDS ORDERED: ceFAZolin SOD 1 GM in D5W MINI-BAG PLUS 50 ML IV ONE (19:45)
[2018-10-29 20:43] LABS: BASO % 0.4 % (0.0-1.0); EOS # 0.1 10^3/uL (0.0-0.5); EOS % 0.9 % (0.0-3.0); HEMATOCRIT 42.9 % (42.0-52.0); LYMPH # 1.7 10^3/uL (1.5-5.0); LYMPH % 22.1 % (24.0-44.0); MEAN CORPUSCULAR HEMOGLOBIN 30.4 pg (27.0-33.0); MEAN CORPUSCULAR HGB CONC 32.6 g/dl (32.0-36.5); MEAN CORPUSCULAR VOLUME 93.1 fl (80.0-96.0); MONO % 12.3 % (0.0-5.0); NEUTROPHILS # 4.9 10^3/uL (1.5-8.5); NEUTROPHILS % 62.5 % (36.0-66.0); PLATELET COUNT, AUTOMATED 212 10^3/uL (150-450); RED BLOOD COUNT 4.61 10^6/uL (4.30-6.10); WHITE BLOOD COUNT 7.9 10^3/uL (4.0-10.0)
[2018-10-29 21:01] LABS: BLOOD UREA NITROGEN 17 MG/DL (7-18); CALCIUM LEVEL 8.7 MG/DL (8.5-10.1); CARBON DIOXIDE LEVEL 19 MEQ/L (21-32); CHLORIDE LEVEL 107 MEQ/L (98-107); CREATININE FOR GFR 0.96 MG/DL (0.70-1.30); GLOMERULAR FILTRATION RATE > 60.0 (>60); GLUCOSE, FASTING 84 MG/DL (70-100); POTASSIUM SERUM 4.1 MEQ/L (3.5-5.1); SODIUM LEVEL 134 MEQ/L (136-145)
[2018-10-29] MEDS ORDERED: VENTAER INH (23:20)
[2018-10-29] MEDS ORDERED: ASPI-161 PO (23:20)
[2018-10-29] MEDS ORDERED: C 50TAB PO (23:20)
[2018-10-29] MEDS ORDERED: TUMS500C PO (23:20)
[2018-10-29] MEDS ORDERED: IBUP-1730 PO (23:20)
[2018-10-29] MEDS ORDERED: OMEGCAP4 PO (23:20)
[2018-10-29] MEDS ORDERED: PEPT262S PO (23:20)
--- NOTE | 2018-10-29 23:27 | HPEPDOC ---
[facility] Medical History & Physical Date of Admission Oct 30, 2018 Date of Service: Oct 30, 2018 Primary Care Physician: FARIHA ARMENDARIZ PA-C Attending Physician: ISAK DUNN MD History and Physical TIME OF SERVICE: 12:05 AM CHIEF COMPLAINT: Left lower extremity swelling HISTORY OF PRESENT ILLNESS: This is a 47-year-old male who presents with complaints of left lower extremity swelling. He reports being stung by a bee on the anterior aspect of the left lower extremity on . He was wearing shorts and didn't clean the area. He continued to golf and didn't shower until several hours after being stung. Just after midnight on Monday morning he developed chills and vomited for about 12 hours. On Monday he noticed he developed left upper leg redness . Today he decided to come to also because over the last few days he developed worsening left lower extremity redness, swelling and burning sensation. . He is able to walk. Associated symptoms include subjective fevers and chills. REVIEW OF SYSTEMS: 12 point review of systems negative except as listed in HPI PAST MEDICAL/ SURGICAL HISTORY: Hyperglycemia. Seasonal allergies His pectus sleep apnea did not follow through sleep study Morbid obesity SOCIAL HISTORY: Nonsmoker. FAMILY HISTORY: Diabetes Hypertension CVA. / Carotid endarterectomy. tonic CAD/Triple bypass ALLERGIES: Please see below. HOME MEDICATIONS: Please see below. PHYSICAL EXAMINATION: VITAL SIGNS: Please see below. GENERAL APPEARANCE: well-nourished, well-developed, not in apparent distress, not diaphoretic HEENT: normocephalic, atraumatic, Mucous members moist and pink CARDIOVASCULAR: , regular rate and rhythm. No murmurs, rubs or gallops LUNGS: clear to auscultation bilaterally on room air MUSCULOSKELETAL: range of motion is intact in all 4 extremities INTEGUMENT: The entire left lower leg is red and swollen. This extends up along the lines of lymphatic distribution to the left upper leg. The patient denies tenderness on palpation of the leg PSYCHIATRIC: alert and oriented person, place and time, able to understand and follow commands LABORATORY DATA: See below. IMAGING: Ultrasound of the left lower extremity is negative for DVT but shows a left popliteal fossa because his this 4.9 cm in size MICROBIOLOGY: Please see below. ASSESSMENT: Mr. Hidalgo is a 47-year-old male with a past history of dyslipidemia, who will be admitted for management of left lower extremity cellulitis PLAN: 1. LLE Cellulitis likely 2/2 infected bee sting Risk factors include obesity -WBC # is within normal limits -Duplex for DVT Plan: admit to med-surg / fall precautions / elevate leg /continue with IV cefazolin / Tylenol and ibuprofen for pain 2.Leroy's cyst affecting the left knee. 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 Plan: Pain meds for DJD / the daytime team can decide if arthrosis centesis of the knee and intra-articular corticosteroid injections are warranted 3. Dyslipidemia Plan: Continue home meds 4. Morbid Obesity BMI 46.3 Since his BMI is above 40 he is a candidate for bariatric surgery Plan: high fiber diet/can f/u w PCP for manager medical consult & referral for Bariatric surgery / recommend cardiovascular exercise for 40 min 4-5 days a week DVT prophylaxis with Lovenox. Disposition pending clinical course Vital Signs Vital Signs Date Time Temp Pulse Resp B/P (MAP) Pulse Ox O2 Delivery O2 Flow Rate FiO2 10/29/18 21:40 98.9 85 18 160/75 (103) 96 Room Air Laboratory Data Labs 24H Laboratory Tests 2 10/29/18 20:25: Anion Gap 8, Glomerular Filtration Rate > 60.0, Blood Urea Nitrogen 17, Creatinine 0.96, Sodium Level 134L, Potassium Level 4.1, Chloride Level 107, Carbon Dioxide Level 19L, Calcium Level 8.7 10/29/18 20:26: Immature Granulocyte % (Auto) 1.8, White Blood Count 7.9, Red Blood Count 4.61, Hemoglobin 14.0, Hematocrit 42.9, Mean Corpuscular Volume 93.1, Mean Corpuscular Hemoglobin 30.4, Mean Corpuscular Hemoglobin Concent 32.6, Red Cell Distribution Width 13.8, Platelet Count 212, Neutrophils (%) (Auto) 62.5, Lymphocytes (%) (Auto) 22.1L, Monocytes (%) (Auto) 12.3H, Eosinophils (%) (Auto) 0.9, Basophils (%) (Auto) 0.4, Neutrophils # (Auto) 4.9, Lymphocytes # (Auto) 1.7, Monocytes # (Auto) 1.0H, Eosinophils # (Auto) 0.1, Basophils # (Auto) 0.0, Nucleated Red Blood Cells % (auto) 0.0 9/9/19 22:02: Lactic Acid Level 1.2 CBC/BMP Laboratory Tests 10/29/18 20:25 Calcium Level 8.7 10/29/18 20:26 Red Blood Count 4.61, Mean Corpuscular Volume 93.1, Mean Corpuscular Hemoglobin 30.4, Mean Corpuscular Hemoglobin Concent 32.6, Red Cell Distribution Width 13.8, Neutrophils (%) (Auto) 62.5, Lymphocytes (%) (Auto) 22.1 L, Monocytes (%) (Auto) 12.3 H, Eosinophils (%) (Auto) 0.9, Basophils (%) (Auto) 0.4, Neutrophils # (Auto) 4.9, Lymphocytes # (Auto) 1.7, Monocytes # (Auto) 1.0 H, Eosinophils # (Auto) 0.1, Basophils # (Auto) 0.0 Microbiology Microbiology 10/29/18 Blood Culture, Received Pending 10/29/18 Blood Culture, Received Pending Home Medications Scheduled Ascorbic Acid (Vitamin C) 500 Mg Tablet, 500 MG PO QHS Aspirin (Aspirin EC) 81 Mg Tablet.dr, 81 MG PO QHS [place]-3/Dha/Epa/Fish Oil ([place]-3 Fish Oil 1,000 mg Sfgl) 1,000 Mg Capsule, 1 CAP PO QHS Scheduled PRN Albuterol Sulfate (Ventolin Hfa) 18 Gm Hfa.aer.ad, 2 PUFF INH Q4H PRN for SHORTNESS OF BREATH Bismuth Subsalicylate (Pepto-Bismol) 262 Mg/15 Ml Oral.susp, 30 ML PO Q3HP PRN for DYSPEPSIA Calcium Carbonate (Tums) 200 Mg Tab.chew, 1,000 MG PO Q4H PRN for DYSPEPSIA Ibuprofen (Ibuprofen) 200 Mg Tablet, 600 MG PO Q6H PRN for PAIN / FEVER Allergies Coded Allergies: HAY FEVER (Verified Allergy, Unknown, 10/29/18) ragweed pollen (Verified Allergy, Unknown, 10/29/18) A-FIB/CHADSVASC A-FIB History Current/History of A-Fib/PAF?: No Current PO Anticoag Therapy: No ISAK DUNN MD Oct 29, 2018 23:27
[2018-10-29] MEDS ORDERED: IBUPROFEN 400 MG TAB PO PRN (23:30)
[2018-10-29] MEDS ORDERED: ACETAMINOPHEN 650MG ER TAB (TYLENOL ARTHRITIS) PO PRN (23:30)
[2018-10-30 00:27] VITALS: BP 168/81
[2018-10-30] MEDS: ceFAZolin SOD 1 GM in D5W MINI-BAG PLUS 50 ML IV SCH ×3 (06:27→17:19)
[2018-10-30 06:32] VITALS: BP 150/79
[2018-10-30 07:02] LABS: HEMATOCRIT 39.8 % (42.0-52.0); HEMOGLOBIN 13.1 g/dl (13.5-17.5); MEAN CORPUSCULAR HEMOGLOBIN 29.6 pg (27.0-33.0); MEAN CORPUSCULAR HGB CONC 32.9 g/dl (32.0-36.5); MEAN CORPUSCULAR VOLUME 89.8 fl (80.0-96.0); PLATELET COUNT, AUTOMATED 214 10^3/uL (150-450); RED BLOOD COUNT 4.43 10^6/uL (4.30-6.10); WHITE BLOOD COUNT 7.4 10^3/uL (4.0-10.0)
[2018-10-30 07:31] LABS: BLOOD UREA NITROGEN 18 MG/DL (7-18); CALCIUM LEVEL 8.7 MG/DL (8.5-10.1); CARBON DIOXIDE LEVEL 28 MEQ/L (21-32); CHLORIDE LEVEL 107 MEQ/L (98-107); CREATININE FOR GFR 0.95 MG/DL (0.70-1.30); GLOMERULAR FILTRATION RATE > 60.0 (>60); GLUCOSE, FASTING 92 MG/DL (70-100); POTASSIUM SERUM 3.4 MEQ/L (3.5-5.1); SODIUM LEVEL 142 MEQ/L (136-145)
[2018-10-30] MEDS ORDERED: POTASSIUM CHLORIDE 10 MEQ SR TABLET PO ONE (08:00)
[2018-10-30] MEDS: ENOXAPARIN 40 MG/0.4 ML SYRINGE (J1650) SC SCH (09:00)
--- NOTE | 2018-10-30 10:39 | IPNPDOC ---
Subjective Date Seen The patient was seen on 10/30/18. Subjective Chief Complaint/HPI As per patient's redness and swelling is slightly down, but no other complaints General: Denies: ROS Unobtainable, Chills, Night Sweats, Fatigue, Malaise, Normal Appetite, Other Symptoms Constitutional: Denies: Chills, Fever, Malaise, Night Sweats, Weakness, Fatigue, Weight Loss, Lethargy, Other Eyes: Denies: Pain, Vision change, Conjunctivae inflammation, Eyelid inflammation, Redness, Other ENT: Denies: Head Aches, Ear Pain, Dysphagia, Sinus Congestion, Post Nasal Drip, Sore Throat, Epistaxis, Other Symptoms Skin: Reports: Rash Pulmonary: Denies: Dyspnea, Cough, Pleuritic Chest Pain, Other Symptoms Cardiovascular: Denies: Chest Pain, Palpitations, Orthopnea, Paroxysmal Noc. Dyspnea, Edema, Lt Headedness, Other Symptoms Gastrointestinal: Denies: Nausea, Vomiting, Abdominal Pain, Diarrhea, Constipation, Melena, Hematochezia, Other Symptoms Musculoskeletal: Reports: Other Symptoms (, swelling and tenderness on left foot and ankle and lower extremity below the knee) Objective Physical Examination General Exam: Positive: Alert, Cooperative Eye Exam: Positive: PERRLA, Conjunctiva & lids normal ENT Exam: Positive: Atraumatic, Mucous membr. moist/pink Neck Exam: Positive: Supple Chest Exam: Positive: Clear to auscultation, Normal air movement Heart Exam: Positive: Rate Normal, Normal S1, Normal S2 Abdomen Exam: Positive: Normal bowel sounds, Soft, Tenderness Extremity Exam: Positive: Other (positive redness, tenderness on palpation and mild edema of left foot, ankle and lower extremity below the knee) Skin Exam: Positive: Other skin issue (as per extremity exam) Neuro Exam: Positive: Strength at 5/5 X4 ext, Sensation Intact Assessment /Plan Problems (1) Cellulitis of left lower extremity Status: Acute Problem Text: Continue Ancef as per orders Elevation of left lower extremity Tylenol/Motrin when necessary CBC, CMP in a.m. (2) Hypokalemia Problem Text: Potassium supplement given Repeat labs in a.m. Plan/VTE VTE Prophylaxis Ordered?: Yes VS, I&O, 24H, Fishbone Vital Signs/I&O Vital Signs Date Time Temp Pulse Resp B/P (MAP) Pulse Ox O2 Delivery O2 Flow Rate FiO2 9/10/19 06:32 98.2 70 16 150/79 (102) 96 10/29/18 21:40 Room Air I&O- Last 24 Hours up to 6 AM 10/30/18 05:59 Intake Total 200 ml Balance 200 ml Laboratory Data 24H LABS Laboratory Tests 2 10/29/18 20:25: Anion Gap 8, Glomerular Filtration Rate > 60.0, Blood Urea Nitrogen 17, Creatinine 0.96, Sodium Level 134L, Potassium Level 4.1, Chloride Level 107, Carbon Dioxide Level 19L, Calcium Level 8.7 10/29/18 20:26: Immature Granulocyte % (Auto) 1.8, White Blood Count 7.9, Red Blood Count 4.61, Hemoglobin 14.0, Hematocrit 42.9, Mean Corpuscular Volume 93.1, Mean Corpuscular Hemoglobin 30.4, Mean Corpuscular Hemoglobin Concent 32.6, Red Cell Distribution Width 13.8, Platelet Count 212, Neutrophils (%) (Auto) 62.5, Lymphocytes (%) (Auto) 22.1L, Monocytes (%) (Auto) 12.3H, Eosinophils (%) (Auto) 0.9, Basophils (%) (Auto) 0.4, Neutrophils # (Auto) 4.9, Lymphocytes # (Auto) 1.7, Monocytes # (Auto) 1.0H, Eosinophils # (Auto) 0.1, Basophils # (Auto) 0.0, Nucleated Red Blood Cells % (auto) 0.0 10/29/18 22:02: Lactic Acid Level 1.2 10/30/18 06:36: Anion Gap 7L, Glomerular Filtration Rate > 60.0, Blood Urea Nitrogen 18, Creatinine 0.95, Sodium Level 142#, Potassium Level 3.4L, Chloride Level 107, Carbon Dioxide Level 28, Calcium Level 8.7, Nucleated Red Blood Cells % (auto) 0.0 CBC/BMP Laboratory Tests 10/29/18 20:25 Calcium Level 8.7 10/29/18 20:26 Red Blood Count 4.61, Mean Corpuscular Volume 93.1, Mean Corpuscular Hemoglobin 30.4, Mean Corpuscular Hemoglobin Concent 32.6, Red Cell Distribution Width 13.8, Neutrophils (%) (Auto) 62.5, Lymphocytes (%) (Auto) 22.1 L, Monocytes (%) (Auto) 12.3 H, Eosinophils (%) (Auto) 0.9, Basophils (%) (Auto) 0.4, Neutrophils # (Auto) 4.9, Lymphocytes # (Auto) 1.7, Monocytes # (Auto) 1.0 H, Eosinophils # (Auto) 0.1, Basophils # (Auto) 0.0 10/30/18 06:36 Calcium Level 8.7, Red Blood Count 4.43, Mean Corpuscular Volume 89.8, Mean Corpuscular Hemoglobin 29.6, Mean Corpuscular Hemoglobin Concent 32.9, Red Cell Distribution Width 13.8 Microbiology Microbiology 10/29/18 Blood Culture, Received Pending 10/29/18 Blood Culture, Received Pending MARY ALEMAN MD Oct 30, 2018 10:39
[2018-10-30 14:00] VITALS: BP 114/62
[2018-10-30 20:14] VITALS: BP 116/63
[2018-10-31] MEDS: ceFAZolin SOD 1 GM in D5W MINI-BAG PLUS 50 ML IV SCH ×5 (00:07→23:05)
[2018-10-31 06:12] LABS: BASO # 0.1 10^3/uL (0.0-0.2); BASO % 0.6 % (0.0-1.0); EOS # 0.2 10^3/uL (0.0-0.5); EOS % 2.7 % (0.0-3.0); HEMATOCRIT 40.3 % (42.0-52.0); HEMOGLOBIN 13.1 g/dl (13.5-17.5); LYMPH # 2.2 10^3/uL (1.5-5.0); MEAN CORPUSCULAR HEMOGLOBIN 29.7 pg (27.0-33.0); MEAN CORPUSCULAR HGB CONC 32.5 g/dl (32.0-36.5); MEAN CORPUSCULAR VOLUME 91.4 fl (80.0-96.0); MONO # 0.7 10^3/uL (0.0-0.8); MONO % 9.1 % (0.0-5.0); NEUTROPHILS # 4.5 10^3/uL (1.5-8.5); NEUTROPHILS % 55.8 % (36.0-66.0); PLATELET COUNT, AUTOMATED 248 10^3/uL (150-450); RED BLOOD COUNT 4.41 10^6/uL (4.30-6.10); WHITE BLOOD COUNT 8.1 10^3/uL (4.0-10.0)
[2018-10-31 06:38] LABS: ALBUMIN 2.5 GM/DL (3.2-5.2); ALT/SGPT 36 U/L (12-78); BILIRUBIN,TOTAL 0.5 MG/DL (0.2-1.0); BLOOD UREA NITROGEN 14 MG/DL (7-18); CALCIUM LEVEL 8.8 MG/DL (8.5-10.1); CARBON DIOXIDE LEVEL 28 MEQ/L (21-32); CHLORIDE LEVEL 107 MEQ/L (98-107); GLOMERULAR FILTRATION RATE > 60.0 (>60); GLUCOSE, FASTING 105 MG/DL (70-100); POTASSIUM SERUM 3.6 MEQ/L (3.5-5.1); SODIUM LEVEL 143 MEQ/L (136-145); TOTAL PROTEIN 7.1 GM/DL (6.4-8.2)
[2018-10-31] MEDS: ENOXAPARIN 40 MG/0.4 ML SYRINGE (J1650) SC SCH (08:41)
[2018-10-31 13:15] VITALS: BP 127/72
--- NOTE | 2018-10-31 13:45 | IPN ---
DATE OF SERVICE: 10/31/2018 SUBJECTIVE: The patient denies any fever or chills overnight. Continues to have left lower extremity swelling and redness of his leg, however, states that the pain is under control. He denies any chills overnight. OBJECTIVE: Temperature 99.4, pulse 77 sinus rhythm, respiratory rate 16, blood pressure 116/63, 96% on room air. Generally, the patient is awake, alert and oriented times three, answering questions appropriately. Anicteric. No jaundice. Not diaphoretic. Speaks in full sentences. Lungs are clear to auscultation. No wheezing, rales or rhonchi. Heart: S1 and S2, sinus rhythm. No murmurs, rubs or gallops. Abdomen soft, nontender and nondistended. Positive bowel sounds. No rebound or guarding. Extremities: Left lower extremity with significant erythema and tenderness, which the patient says has improved since yesterday. Lab Data: White count 8.1, hemoglobin 13, hematocrit 40, platelet count 248. Sodium 143, potassium 3.6, chloride 107, bicarbonate 28, BUN 14, creatinine 1, glucose 105. Microbiology: Two sets blood culture on 10/29/2018 with no growth after 24 hours. Vascular ultrasound 10/29/2018 with no evidence of deep vein thrombosis (DVT), left popliteal fossa Leroy's cyst measuring up to 4.9 cm. ASSESSMENT AND PLAN: This is a 47-year-old male with past medical history significant for hyperglycemia, seasonal allergies, sleep apnea who did not follow through with a sleep study, and morbid obesity who presents with left lower extremity popliteal cyst swelling and underlying cellulitis. ACUTE ISSUES: 1. Left lower extremity cellulitis, currently on intravenous Ancef. Elevation of lower extremity. As needed Motrin and Tylenol. Serial metabolic panel testing. 2. Obesity BMI 46.1. Weight loss as outpatient. Caloric intake restriction. 3. At risk for hypercapnic respiratory failure. Monitor. Currently not on any opioids or narcotics or sedatives. 4. Deep vein thrombosis prophylaxis. On Lovenox subcutaneous daily. MTDD
[2018-10-31 19:54] VITALS: BP 134/70
[2018-11-01] MEDS: ceFAZolin SOD 1 GM in D5W MINI-BAG PLUS 50 ML IV SCH ×2 (05:08→11:23)
[2018-11-01 06:44] VITALS: BP 130/63
[2018-11-01] MEDS: ENOXAPARIN 40 MG/0.4 ML SYRINGE (J1650) SC SCH (09:00)
[2018-11-01 14:00] VITALS: BP 135/74
[2018-11-01] MEDS ORDERED: CEPH500C PO (15:38)
[2018-11-01] MEDS ORDERED: CEPHALEXIN 500 MG CAP PO SCH ×2 (18:00→21:00)
--- NOTE | 2018-11-02 20:28 | DS.PDOC ---
Discharge Summary General Date of Admission Oct 30, 2018 at 10:44 Date of Discharge 11/01/2018 Attending Physician: GONZALO MILLER MD Discharge Summary PROCEDURES PERFORMED DURING STAY: [None]. ADMITTING DIAGNOSES: 1. Cellulitis DISCHARGE DIAGNOSES: 1. Cellulitis of left leg 2. Bakers Cyst of Left Knee 3. Morbid obesity 4. Hyperlipidemia COMPLICATIONS/CHIEF COMPLAINT: Cellulitis Of L leg; Bakers Cyst Left Knee. HISTORY OF PRESENT ILLNESS: 47-year-old man who presented with left lower extremity swelling, redness and pain of approximately 1 week duration. He reported being stung by a bee on the anterior aspect of the left lower extremity one week prior while he was wearing shorts and didn't clean the area. He continued to golf and didn't shower until several hours after being stung. A few hours later he developed chills and had a few episodes of emesis for about 12 hours. The next day he noticed that he had developed left upper leg redness and presented to the ED after it was worsening with swelling and a burning sensation, with associated subjective fevers and chills. HOSPITAL COURSE: In the ED he was started on ancef and admitted to the floor for management of cellulitis. The perimeter of his erythema was dermacated to the mid thigh and within two days it had receeded to mid gutierrez with administration of ancef and leg elevation. He also reported resolution of pain with walking. He was switched to keflex and is now being discharge home to finish a 10 day course. DISCHARGE MEDICATIONS: Please see below. ALLERGIES: Please see below. PHYSICAL EXAMINATION ON DISCHARGE: VITAL SIGNS: Please see below. GENERAL APPEARANCE: morbidly obese, well-nourished, well-developed, not in apparent distress, not diaphoretic HEENT: normocephalic, atraumatic, Mucous members moist and pink CARDIOVASCULAR: regular rate and rhythm. No murmurs, rubs or gallops LUNGS: clear to auscultation bilaterally and breathing comfortably on room air MUSCULOSKELETAL: range of motion is intact in all 4 extremities INTEGUMENT: The circumference of the midshin to ankle area of the left lower leg is red and swollen. A marker demarcates the original erythema perimeter to be to the midthigh. The patient denies tenderness on palpation of the leg PSYCHIATRIC: alert and oriented person, place and time, able to understand and follow commands LABORATORY DATA: Please see below. IMAGIN10/29/2018: US Duplex Left Lower Extremity Veins, Limited IMPRESSION: 1. No evidence of deep venous thrombus in the left lower extremity. 2. Left popliteal fossa Leroy's cyst measures up to 4.9 cm. US Duplex Left Lower Extremity Veins, Limited PROGNOSIS: Excellent ACTIVITY: As tolerated DIET: Regular, as tolerated DISCHARGE PLAN: Home on oral equivalent (Keflex) to complete a 10day course. DISPOSITION: 01 Home, Self-Care. DISCHARGE INSTRUCTIONS: 1. PCP appointment within 10 days of discharge ITEMS TO FOLLOWUP ON ON OUTPATIENT: 1. Resolution of cellulitis 2. Management of Leroy's cyst DISCHARGE CONDITION: Good TIME SPENT ON DISCHARGE: Greater than 30 minutes. Vital Signs/I&Os Vital Signs Date Time Temp Pulse Resp B/P (MAP) Pulse Ox O2 Delivery O2 Flow Rate FiO2 11/01/18 14:00 98.1 74 16 135/74 (94) 95 10/29/18 21:40 Room Air I&O- Last 24 Hours up to 6 AM 11/02/18 06:00 Intake Total 1445 ml Output Total 0 ml Balance 1445 ml Microbiology Microbiology 10/29/18 Blood Culture - Preliminary, Resulted No Growth after 72 hours. All specime... 10/29/18 Blood Culture - Preliminary, Resulted No Growth after 72 hours. All specime... Discharge Medications Scheduled Ascorbic Acid (Vitamin C) 500 Mg Tablet, 500 MG PO QHS, (Reported) Aspirin (Aspirin EC) 81 Mg Tablet.dr, 81 MG PO QHS, (Reported) Cephalexin (Cephalexin) 500 Mg Capsule, 500 MG PO Q6H [place]-3/Dha/Epa/Fish Oil ([place]-3 Fish Oil 1,000 mg Sfgl) 1,000 Mg Capsule, 1 CAP PO QHS, (Reported) Scheduled PRN Albuterol Sulfate (Ventolin Hfa) 18 Gm Hfa.aer.ad, 2 PUFF INH Q4H PRN for SHORTNESS OF BREATH, (Reported) Bismuth Subsalicylate (Pepto-Bismol) 262 Mg/15 Ml Oral.susp, 30 ML PO Q3HP PRN for DYSPEPSIA, (Reported) Calcium Carbonate (Tums) 200 Mg Tab.chew, 1,000 MG PO Q4H PRN for DYSPEPSIA, (Reported) Ibuprofen (Ibuprofen) 200 Mg Tablet, 600 MG PO Q6H PRN for PAIN / FEVER, (Reported) Allergies Coded Allergies: HAY FEVER (Verified Allergy, Unknown, 10/29/18) ragweed pollen (Verified Allergy, Unknown, 10/29/18) GONZALO MILLER MD Nov 02, 2018 20:28
== END 2018-11-01 16:20 | disposition home or self-care (01) | DRG 383 ==
LOC: M ED 16:59 → M ED INP 17:00 → M MS5PR 10-30 00:22 → OBSVTOIN 10-30 10:44
PROVIDERS: ADMIT Internal Medicine; ATTEND Internal Medicine
DX: L03.116 Cellulitis of left lower limb (principal); Z68.42 Body mass index [BMI] 45.0-49.9, adult; E66.01 Morbid (severe) obesity due to excess calories; M71.22 Synovial cyst of popliteal space [Baker], left knee; E87.6 Hypokalemia; J30.2 Other seasonal allergic rhinitis; E78.5 Hyperlipidemia, unspecified; Z79.82 Long term (current) use of aspirin; Z79.899 Other long term (current) drug therapy

== ENCOUNTER → 2018-11-19 | Outpatient (REF) | payer OTHER ==
[~2018-11-19] MED LIST: ASPI-161 PO; ASPI81CH33 PO; C 50TAB PO; CEPH500C PO; FISH1000 PO; IBUP-1730 PO; OMEGCAP4 PO; PEPT262S PO; TUMS500C PO; VENTAER INH; VITA500C24 PO
[2018-11-19 16:50] LABS: BASO % 0.9 % (0.0-1.0); EOS # 0.1 10^3/uL (0.0-0.5); EOS % 2.7 % (0.0-3.0); HEMATOCRIT 43.5 % (42.0-52.0); LYMPH # 1.6 10^3/uL (1.5-5.0); LYMPH % 34.4 % (24.0-44.0); MEAN CORPUSCULAR HEMOGLOBIN 30.1 pg (27.0-33.0); MEAN CORPUSCULAR HGB CONC 32.2 g/dl (32.0-36.5); MEAN CORPUSCULAR VOLUME 93.5 fl (80.0-96.0); MONO # 0.4 10^3/uL (0.0-0.8); MONO % 8.4 % (0.0-5.0); NEUTROPHILS # 2.4 10^3/uL (1.5-8.5); NEUTROPHILS % 53.2 % (36.0-66.0); PLATELET COUNT, AUTOMATED 247 10^3/uL (150-450); RED BLOOD COUNT 4.65 10^6/uL (4.30-6.10); WHITE BLOOD COUNT 4.5 10^3/uL (4.0-10.0)
[2018-11-19 17:28] LABS: ALBUMIN 3.5 GM/DL (3.2-5.2); ALT/SGPT 41 U/L (12-78); BILIRUBIN,TOTAL 1.6 MG/DL (0.2-1.0); BLOOD UREA NITROGEN 13 MG/DL (7-18); CALCIUM LEVEL 8.9 MG/DL (8.5-10.1); CARBON DIOXIDE LEVEL 28 MEQ/L (21-32); CHLORIDE LEVEL 106 MEQ/L (98-107); CHOLESTEROL LEVEL 170 MG/DL (<200); GLOMERULAR FILTRATION RATE > 60.0 (>60); GLUCOSE, FASTING 81 MG/DL (70-100); HDL CHOLESTEROL 40 MG/DL (>40); LDL CHOLESTEROL 110 MG/DL (<100); NON-HDL-C 130 MG/DL; POTASSIUM SERUM 3.9 MEQ/L (3.5-5.1); SODIUM LEVEL 144 MEQ/L (136-145); TOTAL PROTEIN 7.5 GM/DL (6.4-8.2); TRIGLYCERIDES LEVEL 102 MG/DL (<150)
[2018-11-19 17:30] LABS: TOTAL 25(OH) VITAMIN D 33.7 NG/ML (30.0-100.0)
== END ==
LOC: M SFHCCAPE 11:04
PROVIDERS: ATTEND Physician Assistant
DX: Z12.5 Encounter for screening for malignant neoplasm of prostate (principal); E78.1 Pure hyperglyceridemia; E66.01 Morbid (severe) obesity due to excess calories; Z68.41 Body mass index [BMI] 40.0-44.9, adult; F41.1 Generalized anxiety disorder

== ENCOUNTER → 2022-04-05 | Outpatient (REF) | payer OTHER ==
[2022-04-05 17:29] LABS: APPEARANCE, URINE CLEAR (CLEAR); BILIRUBIN, URINE AUTO NEGATIVE (NEGATIVE); BLOOD, URINE BLOOD NEGATIVE (NEGATIVE); COLOR, URINE YELLOW (YELLOW); GLUCOSE, URINE (UA) AUTO NEGATIVE (NEGATIVE); KETONE, URINE AUTO NEGATIVE (NEGATIVE); LEUKOCYTE ESTERASE, URINE AUTO NEGATIVE (NEGATIVE); NITRITE, URINE AUTO NEGATIVE (NEGATIVE); PROTEIN, URINE AUTO NEGATIVE (NEGATIVE); SPECIFIC GRAVITY URINE AUTO 1.021 (1.002-1.035); UROBILINOGEN, URINE AUTO 0.2 mg/dL (0.0-2.0)
[2022-04-05 17:42] LABS: BASO # 0.1 10^3/uL (0.0-0.2); BASO % 1.1 % (0.0-1.0); EOS # 0.3 10^3/uL (0.0-0.5); EOS % 5.4 % (0.0-3.0); HEMATOCRIT 44.2 % (42.0-52.0); HEMOGLOBIN 14.7 g/dl (13.5-17.5); LYMPH # 2.2 10^3/uL (1.5-5.0); LYMPH % 34.6 % (24.0-44.0); MEAN CORPUSCULAR HEMOGLOBIN 30.2 pg (27.0-33.0); MEAN CORPUSCULAR HGB CONC 33.3 g/dl (32.0-36.5); MEAN CORPUSCULAR VOLUME 90.8 fl (80.0-96.0); MONO # 0.7 10^3/uL (0.0-0.8); PLATELET COUNT, AUTOMATED 225 10^3/uL (150-450); RED BLOOD COUNT 4.87 10^6/uL (4.30-6.10); WHITE BLOOD COUNT 6.4 10^3/uL (4.0-10.0)
[2022-04-05 17:55] LABS: BACTERIA, URINE AUTO NEGATIVE (NEGATIVE); MUCUS, URINE SMALL (NEGATIVE); RBC, URINE AUTO 1 /HPF (0-3); SQUAMOUS EPITHELIAL CELL UR AU 0 /HPF (0-6); WBC, URINE AUTO 0 /HPF (0-3)
[2022-04-05 18:21] LABS: ALBUMIN 3.3 G/DL (3.2-5.2); ALKALINE PHOSPHATASE 101 U/L (46-116); ALT/SGPT 29 U/L (7.0-40); AST/SGOT 26 U/L (<34); BILIRUBIN,TOTAL 0.9 MG/DL (0.3-1.2); BLOOD UREA NITROGEN 19 MG/DL (9-23); CALCIUM LEVEL 9.2 MG/DL (8.5-10.1); CARBON DIOXIDE LEVEL 26 MMOL/L (20-31); CHLORIDE LEVEL 106 MMOL/L (98-107); CHOLESTEROL LEVEL 153 MG/DL (<200); GLOMERULAR FILTRATION RATE > 60.0 (>56); GLUCOSE, FASTING 122 MG/DL (60-100); HDL CHOLESTEROL 43.6 MG/DL (>40); LDL CHOLESTEROL 89.4 MG/DL (<100); NON-HDL-C 109 MG/DL; SODIUM LEVEL 140 MMOL/L (136-145); THYROID STIMULATING HORMONE 2.529 uIU/ML (0.55-4.78); TOTAL 25(OH) VITAMIN D 31.1 NG/ML (20.0-100.0); TOTAL PROTEIN 6.6 G/DL (5.7-8.2); TRIGLYCERIDES LEVEL 100 MG/DL (<150)
== END ==
LOC: M SFHCCAPE 08:57
PROVIDERS: ATTEND Physician Assistant
DX: F41.1 Generalized anxiety disorder (principal); E78.1 Pure hyperglyceridemia; R73.01 Impaired fasting glucose; Z12.5 Encounter for screening for malignant neoplasm of prostate; Z00.00 Encounter for general adult medical examination without abnormal findings

== ENCOUNTER 2022-07-20 11:03 | Day surgery (SDC) | payer OTHER ==
[~2022-07-20] VITALS: Ht 170.2 cm; Wt 131.1 kg
[~2022-07-20 11:03] MED LIST changes: +NS 1,000 ML IV ONE; +VITMTA PO
[2022-07-20] MEDS ORDERED: propofoL 200 MG/20 ML VIAL As Ordered ONE ×2 (12:24→12:33)
[2022-07-20 13:02] VITALS: BP 137/76
== END 2022-07-20 13:09 | disposition home or self-care (01) ==
LOC: M OPP 11:03
PROVIDERS: ATTEND Surgery
DX: Z12.11 Encounter for screening for malignant neoplasm of colon (principal); D12.5 Benign neoplasm of sigmoid colon; Z79.82 Long term (current) use of aspirin

== ENCOUNTER → 2022-12-22 | Outpatient (CLI) | payer OTHER ==
[~2022-12-22] MED LIST changes: -NS 1,000 ML IV ONE
== END ==
LOC: M SLEEP HO 11:39
PROVIDERS: ATTEND Physician Assistant
DX: R40.0 Somnolence (principal)
CPT/HCPCS: G0399 ×2

== ENCOUNTER → 2023-09-09 | Outpatient (CLI) | payer OTHER ==
[~2023-09-09] MED LIST changes: -ASPI-161 PO; +ASPI-615 PO
[2023-09-09 10:38] LABS: BASO # 0.1 10^3/uL (0.0-0.2); BASO % 0.8 % (0.0-1.0); EOS # 0.2 10^3/uL (0.0-0.5); EOS % 3.4 % (0.0-3.0); HEMOGLOBIN 15.3 g/dl (13.5-17.5); LYMPH % 31.5 % (24.0-44.0); MEAN CORPUSCULAR HEMOGLOBIN 30.6 pg (27.0-33.0); MEAN CORPUSCULAR HGB CONC 33.3 g/dl (32.0-36.5); MONO # 0.6 10^3/uL (0.0-0.8); MONO % 9.1 % (2.0-8.0); NEUTROPHILS # 3.5 10^3/uL (1.5-8.5); NEUTROPHILS % 54.4 % (36.0-66.0); PLATELET COUNT, AUTOMATED 228 10^3/uL (150-450); WHITE BLOOD COUNT 6.4 10^3/uL (4.0-10.0)
[2023-09-09 11:02] LABS: ALBUMIN 3.5 G/DL (3.2-5.2); ALKALINE PHOSPHATASE 100 U/L (46-116); ALT/SGPT 31 U/L (7.0-40); AST/SGOT 18 U/L (<34); BILIRUBIN,TOTAL 0.9 MG/DL (0.3-1.2); BLOOD UREA NITROGEN 15 MG/DL (9-23); CALCIUM LEVEL 8.9 MG/DL (8.5-10.1); CARBON DIOXIDE LEVEL 26 MMOL/L (20-31); CHLORIDE LEVEL 109 MMOL/L (98-107); CREATININE FOR GFR 0.98 MG/DL (0.70-1.30); GLOMERULAR FILTRATION RATE > 60.0 (>56); GLUCOSE, FASTING 107 MG/DL (60-100); POTASSIUM SERUM 4.3 MMOL/L (3.5-5.1); SODIUM LEVEL 142 MMOL/L (136-145); TOTAL PROTEIN 6.9 G/DL (5.7-8.2)
[2023-09-09 11:05] LABS: THYROID STIMULATING HORMONE 1.617 uIU/ML (0.55-4.78)
== END ==
LOC: M RAD 09:07
PROVIDERS: ATTEND Physician Assistant
DX: R06.09 Other forms of dyspnea (principal)

== ENCOUNTER → 2023-10-26 | Outpatient (CLI) | payer OTHER | LOC: M PLAIMG 10:56 | PROVIDERS: ATTEND Family Medicine | DX: R06.02 Shortness of breath (principal) ==

== ENCOUNTER 2024-01-13 01:01 | Emergency (ER) | payer OTHER ==
[~2024-01-13] VITALS: Ht 170.2 cm; Wt 138.4 kg
[2024-01-13 01:38] LABS: BASO # 0.1 10^3/uL (0.0-0.2); BASO % 0.6 % (0.0-1.0); EOS # 0.3 10^3/uL (0.0-0.5); EOS % 3.7 % (0.0-3.0); HEMATOCRIT 42.8 % (42.0-52.0); LYMPH # 2.4 10^3/uL (1.5-5.0); LYMPH % 29.5 % (24.0-44.0); MEAN CORPUSCULAR HEMOGLOBIN 29.5 pg (27.0-33.0); MEAN CORPUSCULAR HGB CONC 32.7 g/dl (32.0-36.5); MEAN CORPUSCULAR VOLUME 90.3 fl (80.0-96.0); MONO # 0.7 10^3/uL (0.0-0.8); MONO % 8.5 % (2.0-8.0); NEUTROPHILS # 4.7 10^3/uL (1.5-8.5); NEUTROPHILS % 57.1 % (36.0-66.0); PLATELET COUNT, AUTOMATED 231 10^3/uL (150-450); RED BLOOD COUNT 4.74 10^6/uL (4.30-6.10); WHITE BLOOD COUNT 8.3 10^3/uL (4.0-10.0)
[2024-01-13 02:00] LABS: BLOOD UREA NITROGEN 15 MG/DL (9-23); CALCIUM LEVEL 8.7 MG/DL (8.5-10.1); CARBON DIOXIDE LEVEL 26 MMOL/L (20-31); CHLORIDE LEVEL 105 MMOL/L (98-107); CK-MB VALUE MASS < 1.0 NG/ML (<3.6); CREATININE FOR GFR 0.82 MG/DL (0.70-1.30); GLOMERULAR FILTRATION RATE > 60.0 (>56); GLUCOSE, FASTING 153 MG/DL (60-100); POTASSIUM SERUM 3.6 MMOL/L (3.5-5.1); SODIUM LEVEL 139 MMOL/L (136-145)
[2024-01-13 02:09] LABS: CPK CREATINE PHOSPHOKINASE 117 U/L (46-171); MB/CK RELATIVE INDEX 0.85 (< OR =4)
[2024-01-13 03:09] LABS: CK-MB VALUE MASS < 1.0 NG/ML (<3.6)
[2024-01-13 03:11] LABS: CPK CREATINE PHOSPHOKINASE 107 U/L (46-171); MB/CK RELATIVE INDEX 0.93 (< OR =4)
[2024-01-13 04:16] VITALS: BP 135/68; TEMP 97.5; O2SAT 96
[2024-01-13] MEDS ORDERED: HOLTER MONITOR XX (04:17)
== END 2024-01-13 04:30 | disposition home or self-care (01) ==
LOC: M ED 01:01
DX: R07.89 Other chest pain (principal); R00.2 Palpitations; E78.5 Hyperlipidemia, unspecified

== ENCOUNTER → 2024-01-15 | Outpatient (CLI) | payer OTHER ==
[~2024-01-15] MED LIST changes: +HOLTER MONITOR XX
== END ==
LOC: M EKG 11:54
PROVIDERS: ATTEND Emergency Medicine
DX: R00.2 Palpitations (principal); Z53.9 Procedure and treatment not carried out, unspecified reason

== ENCOUNTER → 2024-11-11 | Outpatient (REF) | payer OTHER ==
[2024-11-11 18:40] LABS: PSA SCREENING 2.08 NG/ML (< 4.00)
[2024-11-11 18:45] LABS: ALT/SGPT 28 U/L (7.0-40); AST/SGOT 24 U/L (<34); CALCIUM LEVEL 9.0 MG/DL (8.5-10.1); CARBON DIOXIDE LEVEL 26 MMOL/L (20-31); CHLORIDE LEVEL 107 MMOL/L (98-107); CHOLESTEROL LEVEL 162 MG/DL (<200); CHOLESTEROL RISK RATIO 3.81 (<5); CREATININE FOR GFR 0.91 MG/DL (0.70-1.30); GLOMERULAR FILTRATION RATE > 90.0 (>56); LDL CHOLESTEROL 96.1 MG/DL (<100); NON-HDL-C 119.5 MG/DL; POTASSIUM SERUM 4.3 MMOL/L (3.5-5.1); SODIUM LEVEL 143 MMOL/L (136-145); TRIGLYCERIDES LEVEL 117 MG/DL (<150)
[2024-11-11 18:51] LABS: BASO # 0.1 10^3/uL (0.0-0.2); BASO % 0.8 % (0.0-1.0); EOS # 0.2 10^3/uL (0.0-0.5); EOS % 3.5 % (0.0-3.0); LYMPH # 1.9 10^3/uL (1.5-5.0); LYMPH % 30.4 % (24.0-44.0); MONO # 0.7 10^3/uL (0.0-0.8); MONO % 11.2 % (2.0-8.0); NEUTROPHILS # 3.3 10^3/uL (1.5-8.5); NEUTROPHILS % 53.3 % (36.0-66.0); PLATELET COUNT, AUTOMATED 250 10^3/uL (150-450)
[2024-11-11 19:18] LABS: ESTIMATED AVERAGE GLUCOSE 131.0 MG/DL (60-110)
== END ==
LOC: M SFHCCAPE 08:59
PROVIDERS: ATTEND Physician Assistant Medical
DX: F41.1 Generalized anxiety disorder (principal); G47.33 Obstructive sleep apnea (adult) (pediatric); Z12.5 Encounter for screening for malignant neoplasm of prostate; E78.5 Hyperlipidemia, unspecified; R73.03 Prediabetes